=== PATIENT | female | born 1930 | race Caucasian/White ===

== ENCOUNTER 2017-05-16 09:41 | Emergency (ER) | payer OTHER, SELFPAY ==
[~2017-05-16] VITALS: Ht 162.6 cm; Wt 54.9 kg
[2017-05-16] MEDS ORDERED: AMLO10TA2 PO (10:20)
[2017-05-16] MEDS ORDERED: LISI5TAB7 PO (10:21)
[2017-05-16] MEDS ORDERED: KETOROLAC 30 MG/1 ML ONE (10:53)
[2017-05-16] MEDS ORDERED: KETOROLAC 30 MG/1 ML IM ONE (11:00)
[2017-05-16 13:20] VITALS: BP 143/54
== END 2017-05-16 13:23 | disposition home or self-care (01) ==
LOC: ED 11:14
DX: I82.411 Acute embolism and thrombosis of right femoral vein (principal); I10 Essential (primary) hypertension; K50.90 Crohn's disease, unspecified, without complications; Z90.49 Acquired absence of other specified parts of digestive tract; Z88.6 Allergy status to analgesic agent
CPT/HCPCS: 29505; 73552; 93971; 96372; 99284; J1885